=== PATIENT | female | born 1990 | race Caucasian/White ===

== ENCOUNTER → 2020-08-11 10:58 | Outpatient (CLI) | payer OTHER, SELFPAY ==
[2020-08-11 12:46] LABS: Appearance Urine UA CLEAR; Bilirubin Urine UA NEGATIVE (NEGATIVE); Color Urine UA YELLOW; Glucose Urine UA NEGATIVE (Negative); Ketones Urine UA NEGATIVE (NEGATIVE); Leukocyte Esterase Urine UA NEGATIVE (NEGATIVE); Nitrite Urine UA NEGATIVE (Negative); Occult Blood Urine UA NEGATIVE (Negative); Protein Urine UA NEGATIVE (Negative); Urobilinogen Urine UA 0.2 E.U./dL (0.2)
[2020-08-11 12:47] LABS: Add Manual Diff / Slide Review NO; Basophils Absolute Auto 0 /uL (0-100); Basophils Percent Auto 0.3 % (0-2); Eosinophils Absolute Auto 100 /uL (0-450); Eosinophils Percent Auto 1.7 % (2-4); Hematocrit 39.4 % (36-46); Hemoglobin 13.2 g/dL (12.0-16.0); Lymphocytes Absolute Auto 1800 /uL (1100-4500); Lymphocytes Percent Auto 24.9 % (25-40); Mean Corpuscular HGB Conc 33.4 % (30-36); Mean Corpuscular Hemoglobin 28.7 PG (26-34); Mean Corpuscular Volume 86.1 fL (80-100); Monocytes Absolute Auto 500 /uL (0-900); Monocytes Percent Auto 6.4 % (3-14); Neutrophils Absolute Auto 4800 /uL (1500-7000); Neutrophils Percent Auto 66.7 % (50-75); Platelet Count 252 X10^3/uL (150-400); Red Blood Cell Count 4.58 X10^6/uL (4.0-5.2); Red Cell Distribution Width 13.9 % (11.6-14.8); White Blood Cell Count 7.2 X10^3/uL (4.5-11.0)
[2020-08-11 12:49] LABS: pH Urine UA 6.5 (4.5-8.0)
[2020-08-11 13:34] LABS: Hepatitis B Surface Antigen NEGATIVE s/c (NEGATIVE); Rubella Antibody IgG 18.5 IU/mL (>15)
[2020-08-11 13:51] LABS: HIV 1 & 2 Ab/Ag 4th Gen Combo NEGATIVE (NEGATIVE); Hep C Virus Ab w/Reflex Quant NEGATIVE s/c (NEGATIVE)
[2020-08-12 05:45] LABS: RPR Screen Non Reactive (Non Reactive)
[2020-08-12 08:09] LABS: Varicella IgG Antibody 1626 index (Immune >165)
== END ==
PROVIDERS: PCP Obstetrics & Gynecology; Referring Provider Obstetrics & Gynecology; Visit Provider Obstetrics & Gynecology
DX: Z34.81 Encounter for supervision of other normal pregnancy, first trimester (principal)
CPT/HCPCS: 36415; 80055; 81003; 86787; 86803; 86850; 86900; 86901; 87086; 87389

== ENCOUNTER → 2020-09-02 09:12 | Outpatient (CLI) | payer OTHER, SELFPAY | PROVIDERS: PCP Obstetrics & Gynecology; Visit Provider Obstetrics & Gynecology | DX: Z34.81 Encounter for supervision of other normal pregnancy, first trimester (principal); Z3A.13 13 weeks gestation of pregnancy | CPT/HCPCS: 87491; 87591 ==

== ENCOUNTER → 2020-09-30 10:18 | Outpatient (CLI) | payer OTHER, SELFPAY ==
[2020-10-05 14:08] LABS: Calc Gestational Age EDD (.); Estriol, Free 1.35 ng/mL (.); Inhibin A, Dimeric 199.99 pg/mL (.); Maternal Ethnicity Caucasian (.); Maternal Weight 186 lbs (.); Number of Fetuses No (.); OSBR Risk 1 IN 6499 (.); Results Report (.); Test Results *Screen Negative* (.); hCG, MoM 1.94 (.); hCG, Serum 50145 mIU/mL (.)
== END ==
PROVIDERS: Referring Provider Obstetrics & Gynecology; Visit Provider Obstetrics & Gynecology
DX: Z34.82 Encounter for supervision of other normal pregnancy, second trimester (principal); Z3A.17 17 weeks gestation of pregnancy
CPT/HCPCS: 36415; 82105; 82677; 84702; 86336

== ENCOUNTER → 2020-11-02 13:28 | Outpatient (CLI) | payer OTHER, SELFPAY ==
--- NOTE | 2020-11-02 13:29 | DI.US.S_ITS ---
PROCEDURE: US OB >= 14 WEEKS FETUS INDICATIONS: ANATOMY OUTSIDE/PRIOR DATING DATA: Last menstrual period (LMP): 05/23/2020. LMP-based estimated date of delivery (HERSON): 02/27/2021 . First dating scan (date and location): 08/05/2020. Estimated date of delivery (HERSON) from first dating scan: 03/06/2021. TECHNIQUE: Real-time scanning was performed of the fetus, with image documentation and biometric measurements. Endovaginal scanning: No COMPARISON: [facility], , OB <= 14 WEEKS FETUS, 09/02/2020, 9:32. FINDINGS: General: A single living intrauterine gestation is present. Presentation: Variable. Placenta: Placental position is anterior , without previa. Amniotic fluid index: 14.4 cm, normal range is 5-24 cm. heart rate: 137 beats per minute. Maternal cervical canal: 5.7 cm cm long. Normal lower limit is 2.5 cm. biometrics: Biparietal diameter: 21 weeks 6 Head circumference: 21 weeks 5 days Abdominal circumference: 21 weeks 4 days Femur length: 22 weeks 3 days Estimated gestational age from initial scan: 22 weeks 2 days Composite gestational age from present scan: 21 weeks 6 days Estimated weight and percentile: 461 g; 26 percentile Measurement variability for biometric dating: +/- 7 days from 14 weeks to 15 weeks 6 days gestation, +/- 10 days from 16 weeks to 21 weeks 6 days gestation, +/- 2 weeks from 22 weeks to 27 weeks 6 days gestation, +/- 3 weeks for 28 weeks gestation or later. weight reference: 4500 g or EFW >90/95% is considered macrosomia or large for gestational age. EFW <10% is small for gestational age. EFW 5% or less is considered intra-uterine growth restriction. Anatomic survey: Neuro: Ventricles are non-dilated at less than 10 mm. Cisterna magna is normal at 3-11 mm. Cerebellum is normal in size and morphology. Nuchal skin fold: Normal at less than 6 mm between 14-21 weeks gestational age. Face: Nose and lips, facial profile are normal. Spine: No evidence for spina bifida. Heart: 4-chambered heart is present, with normal ventricular outflow tracts. Diaphragm: Diaphragm is intact. Stomach: Left-sided stomach is present. Kidneys: No hydronephrosis. Normal is less than 5 mm in 2nd trimester, less than 7 mm in 3rd trimester. Cord: 3-vessel cord has orthotopic insertion. Bladder: Normal in size. Extremities: All 4 extremities identified. IMPRESSION: 1. Single living intrauterine demonstrating interval growth with estimated weight at the 26th percentile. 2. anatomic survey within normal limits. Dictated by: [place] [facility] Interpreted: Jhony Handy MD on 11/02/2020 at 15:16 Approved by: Jhony Handy M.D. on 11/02/2020 at 15:49
== END ==
PROVIDERS: Referring Provider Obstetrics & Gynecology; Visit Provider Obstetrics & Gynecology
DX: Z34.82 Encounter for supervision of other normal pregnancy, second trimester (principal); Z3A.21 21 weeks gestation of pregnancy
CPT/HCPCS: 76811

== ENCOUNTER → 2020-11-27 10:42 | Outpatient (CLI) | payer OTHER, SELFPAY ==
[2020-11-27 13:07] LABS: Hematocrit 31.4 % (36-46); Hemoglobin 10.4 g/dL (12.0-16.0)
[2020-11-27 13:46] LABS: GTT (PREG) 1 Hour PP 50gm Dose 172 mg/dL (76-139)
== END ==
PROVIDERS: Referring Provider Obstetrics & Gynecology; Visit Provider Obstetrics & Gynecology
DX: Z34.82 Encounter for supervision of other normal pregnancy, second trimester (principal); Z3A.26 26 weeks gestation of pregnancy
CPT/HCPCS: 36415; 82950; 85014; 85018

== ENCOUNTER → 2020-12-07 08:18 | Outpatient (CLI) | payer OTHER, SELFPAY ==
[2020-12-07 09:57] LABS: Glucose Fasting 95 mg/dL (70-100)
[2020-12-07 10:50] LABS: Glucose 1 Hour 190 mg/dL (70-170)
[2020-12-07 11:46] LABS: Glucose Tol Interpretation INTERPRETATION
[2020-12-07 11:50] LABS: Glucose 2 Hour 165 mg/dL (70-140)
[2020-12-07 12:59] LABS: Glucose 3 Hour 123 mg/dL (70-115)
== END ==
PROVIDERS: PCP Obstetrics & Gynecology; Referring Provider Obstetrics & Gynecology; Visit Provider Obstetrics & Gynecology
DX: Z34.90 Encounter for supervision of normal pregnancy, unspecified, unspecified trimester (principal); R73.09 Other abnormal glucose
CPT/HCPCS: 36415; 82951; 82952

== ENCOUNTER 2021-01-13 16:15 | Outpatient (CLI) | payer OTHER, SELFPAY ==
--- NOTE | 2021-01-15 10:37 | PM.OBTRLD ---
Visit Information Visit Information Date of evaluation: 01/13/21 Primary OB Provider: Tg Greer Reason for Evaluation: Yes non-stress test non-stress test reason: diabetes (insulin-dependent) [facility] Medical History (Updated 12/28/20 @ 16:08 by Tg Greer MD) Ankle fracture, left Ankle fracture, right Fractured nose Ovarian cyst (~2007) PCOS (polycystic ovarian syndrome) (~2011) (spontaneous vaginal delivery) Surgical History (Updated 09/02/20 @ 09:32 by Tg Greer MD) H/O removal of cyst H/O wisdom tooth extraction History of tonsillectomy and adenoidectomy Status post incision and drainage (~2011) Family History (Updated 08/03/20 @ 14:39 by Ximena Damon RN) Mother No problems noted. Father No problems noted. Grandmother Alcoholic Grandfather No problems noted. 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
== END 2021-01-13 17:05 | disposition home or self-care (01) ==
LOC: LABOR 16:37 → OB 01-14 07:52
PROVIDERS: PCP Obstetrics & Gynecology; Referring Provider Obstetrics & Gynecology; Visit Provider Obstetrics & Gynecology
DX: O24.414 Gestational diabetes mellitus in pregnancy, insulin controlled (principal); Z3A.32 32 weeks gestation of pregnancy
CPT/HCPCS: 59025; G0378; G0379

== ENCOUNTER 2021-01-20 10:06 | Outpatient (CLI) | payer OTHER, SELFPAY | END 2021-01-20 10:44 | disposition home or self-care (01) | LOC: LABOR 10:10 → OB 01-21 06:49 | PROVIDERS: PCP Obstetrics & Gynecology; Referring Provider Obstetrics & Gynecology; Visit Provider Obstetrics & Gynecology | DX: O24.414 Gestational diabetes mellitus in pregnancy, insulin controlled (principal); Z3A.33 33 weeks gestation of pregnancy | CPT/HCPCS: 59025; G0378; G0379 ==

== ENCOUNTER 2021-01-27 10:48 | Outpatient (CLI) | payer OTHER, SELFPAY | END 2021-01-27 11:20 | disposition home or self-care (01) | LOC: OB 01-28 07:36 | PROVIDERS: PCP Obstetrics & Gynecology; Referring Provider Obstetrics & Gynecology; Visit Provider Obstetrics & Gynecology | DX: O24.414 Gestational diabetes mellitus in pregnancy, insulin controlled (principal); Z3A.34 34 weeks gestation of pregnancy | CPT/HCPCS: 59025; G0378; G0379 ==

== ENCOUNTER 2021-02-03 10:23 | Outpatient (CLI) | payer OTHER, SELFPAY | END 2021-02-03 11:35 | disposition home or self-care (01) | LOC: OB 02-04 07:56 | PROVIDERS: PCP Obstetrics & Gynecology; Referring Provider Obstetrics & Gynecology; Visit Provider Obstetrics & Gynecology | DX: O24.414 Gestational diabetes mellitus in pregnancy, insulin controlled (principal); Z3A.35 35 weeks gestation of pregnancy | CPT/HCPCS: 59025; G0378; G0379 ==

== ENCOUNTER 2021-02-10 10:42 | Outpatient (CLI) | payer OTHER, SELFPAY | END 2021-02-10 10:50 | disposition home or self-care (01) | LOC: OB 02-15 09:55 | PROVIDERS: Referring Provider Obstetrics & Gynecology; Visit Provider Obstetrics & Gynecology | DX: O24.414 Gestational diabetes mellitus in pregnancy, insulin controlled (principal); Z3A.36 36 weeks gestation of pregnancy | CPT/HCPCS: 59025; 87653; G0378; G0379 ==

== ENCOUNTER → 2021-02-10 12:09 | Outpatient (CLI) | payer OTHER, SELFPAY ==
[2021-02-11 20:30] LABS: Strep Grp B PCR NEG for Grp B Strep
== END ==
PROVIDERS: Visit Provider Obstetrics & Gynecology
DX: Z34.83 Encounter for supervision of other normal pregnancy, third trimester (principal); Z3A.36 36 weeks gestation of pregnancy
CPT/HCPCS: 87653

== ENCOUNTER 2021-02-17 13:36 | Outpatient (CLI) | payer OTHER, SELFPAY | END 2021-02-17 14:19 | disposition home or self-care (01) | LOC: LABOR 14:07 → OB 16:23 | PROVIDERS: Referring Provider Obstetrics & Gynecology; Visit Provider Obstetrics & Gynecology | DX: O24.414 Gestational diabetes mellitus in pregnancy, insulin controlled (principal); Z3A.37 37 weeks gestation of pregnancy | CPT/HCPCS: 59025; G0378; G0379 ==

== ENCOUNTER 2021-02-20 21:15 | Observation (INO) | payer OTHER, SELFPAY ==
--- NOTE | 2021-02-21 10:35 | P.TNLD_ITS ---
Visit Information Visit Information Date of evaluation: 02/20/21 Primary OB Provider: Tg Greer On-call OB Provider: Galilea Briones Reason for Evaluation: Yes rule out labor Vital Signs Vital Signs: Blood pressure 136/75, pulse of 90, temperature 36.7? [facility] Medical History (Updated 02/21/21 @ 10:37 by Galilea Briones MD) Ankle fracture, left Ankle fracture, right Fractured nose Ovarian cyst (~2007) PCOS (polycystic ovarian syndrome) (~2011) (spontaneous vaginal delivery) Surgical History (Updated 09/02/20 @ 09:32 by Tg Greer MD) H/O removal of cyst H/O wisdom tooth extraction History of tonsillectomy and adenoidectomy Status post incision and drainage (~2011) Family History (Updated 08/03/20 @ 14:39 by Ximena Damon RN) Mother No problems noted. Father No problems noted. Grandmother Alcoholic Grandfather No problems noted. 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 No leakage of fluid. Good movement. No headaches, scotomata, epigastric pain. ROS: Yes All systems reviewed with the patient and are negative except as oth erwise documented Evaluation Evaluation Baseline heart rate: 130 Variability: Moderate (11-25) monitor accelerations: Present Monitor Decelerations: Absent Contraction Frequency (minutes): 3 Uterine Contraction Intensity: Moderate Category of Tracing: Reactive Status: Category l Cervical dilation (cm): 1 Cervical effacement (%): 0 station: -3 Diagnosis, Plan/Disposition Final Diagnosis (1) False labor: Status: Acute (2) 38 weeks gestation of : Status: Acute Plan/Disposition Plan: Patient arrived on Labor and delivery for possibility of labor. She had no change in cervix after 1 hour and requested discharge home. Precautions reviewed with the patient. OB Disposition: home
== END 2021-02-20 23:40 | disposition home or self-care (01) ==
PROVIDERS: Admitting Provider Specialist; Referring Provider Specialist; Visit Provider Specialist
DX: O24.414 Gestational diabetes mellitus in pregnancy, insulin controlled (principal); O47.1 False labor at or after 37 completed weeks of gestation; Z3A.38 38 weeks gestation of pregnancy
CPT/HCPCS: 59025; 59050; G0378; G0379

== ENCOUNTER 2021-02-24 07:05 | Inpatient (IN) | payer OTHER, SELFPAY ==
--- NOTE | 2021-02-24 07:49 | PM.OBHP.1 ---
OB HPI Date/Time Date of admission: 02/24/21 Date Patient Seen: 02/24/21 Time Patient Seen: 07:49 History of Present Condition Chief complaint: observation : 3 Para: 2 Estimated Date of Delivery: 03/06/21 Estimated Gestational Age (weeks): 39 Narrative: Suzette Clemente is a 30 year old female 3 para 2 at estimated gestational age of 39 weeks here for induction of labor due to gestational diabetes requiring insulin. Indications Indication for induction OB: medical complication (Gestational diabetes on insulin) History of Present care: good care, initiated at week # (9), number of visits (10) and pounds weight gain (42) Dating criteria: LMP confirmed by 1st trimester US Ultrasounds: normal 1st trimester US and normal mid trimester US Obstetrical complications: gestational diabetes (Requiring insulin) Medical complications: none Preadmission Labs Blood type: A (+) positive -: Antibody screen: negative, GBS status: negative, HBsAG: negative, HIV: negative and RPR/VDLR: negative -: Chlamydia screen: not detected and Gonorrhea screen: not detected -: Rubella: immune HCT: 31.4 HCAB: reactive PAP: Normal Quad screen: Normal 1 hr GTT: 172 3 hr GTT: 1 hr (190), 2 hr (165) and 3 hr (123) Fasting blood glucose: 95 Prior (ies) History: Two spontaneous vaginal deliveries Evaluation Evaluation Baseline heart rate: 135 Variability: Moderate (11-25) monitor accelerations: Present Monitor Decelerations: Absent Status: Category l Cervical dilation (cm): 2 Cervical effacement (%): 80 station: -1 [facility] Medical History (Updated 02/22/21 @ 06:27 by Tg Greer MD) Ankle fracture, left Ankle fracture, right Fractured nose Ovarian cyst (~2007) PCOS (polycystic ovarian syndrome) (~2011) (spontaneous vaginal delivery) Surgical History (Updated 09/02/20 @ 09:32 by Tg Greer MD) H/O removal of cyst H/O wisdom tooth extraction History of tonsillectomy and adenoidectomy Status post incision and drainage (~2011) Family History (Updated 08/03/20 @ 14:39 by Ximena Damon RN) Mother No problems noted. Father No problems noted. Grandmother Alcoholic Grandfather No problems noted. 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 Smoking Status: Never smoker second hand exposure: No alcohol intake: former (pre- : very occasional) substance use type: does not use Meds Home Medications and Allergies Home Medications Medication Instructions Recorded Confirmed Type prenat.vits,raffy,kky-rwoz-drmhg 1 tab PO DAILY 08/03/20 02/20/21 History blood-glucose meter #1 ea 12/10/20 02/20/21 Rx lancets #100 ea 12/10/20 02/20/21 Rx blood sugar diagnostic #100 ea 12/28/20 02/20/21 Rx pen needle, diabetic 29 gauge x #30 ea 12/31/20 02/20/21 Rx 1/2 insulin NPH isoph U-100 human 100 26 unit SUBCUT QPM #15 ml 02/01/21 02/20/21 Rx unit/mL (3 mL) subcutaneous pen Allergies Allergy/AdvReac Type Severity Reaction Status Date / Time No Known Drug Allergies Allergy Verified 02/17/21 12:52 Exam Vital Signs (past 8 hours): Generally: Patient is sitting up in bed, no acute distress Lungs: Clear to auscultation bilaterally Cardiovascular: Regular rate and rhythm Fundal height: 39 cm Estimated weight: 7-1/2 lb Extremities: Trace edema, 1+ DTRs Assessment and Plan Assessment and Plan Assessment and Plan narrative: Assessment: 30-year-old 3 para 2 at estimated gestational age of 39 weeks for induction of labor due to gestational diabetes requiring insulin Plan: Check blood sugars every 3 hours Pitocin per protocol 2 Epidural as needed Expected management to spontaneous vaginal delivery Time Spent with Patient Total time spent with greater than 50% in coordination of care (as documented) at patient's floor/unit and/or counseling patient:: 15-24 minutes
[2021-02-24] MEDS: LACTATED RINGERS 1,000 ML 100 ML IV ×2 (08:16→15:07)
[2021-02-24] MEDS: OXYTOCIN PREMIX 30 UNIT/500 ML PLAST..BAG IV (08:17)
[2021-02-24 08:34] LABS: Add Manual Diff / Slide Review NO; Basophils Absolute Auto 0 /uL (0-100); Basophils Percent Auto 0.3 % (0-2); Eosinophils Absolute Auto 100 /uL (0-450); Eosinophils Percent Auto 0.8 % (2-4); Hematocrit 33.9 % (36-46); Lymphocytes Absolute Auto 1700 /uL (1100-4500); Lymphocytes Percent Auto 18.5 % (25-40); Mean Corpuscular HGB Conc 32.4 % (30-36); Mean Corpuscular Hemoglobin 25.7 PG (26-34); Mean Corpuscular Volume 79.3 fL (80-100); Monocytes Absolute Auto 600 /uL (0-900); Neutrophils Absolute Auto 6800 /uL (1500-7000); Neutrophils Percent Auto 74.4 % (50-75); Platelet Count 216 X10^3/uL (150-400); Red Blood Cell Count 4.28 X10^6/uL (4.0-5.2); Red Cell Distribution Width 15.8 % (11.6-14.8); White Blood Cell Count 9.2 X10^3/uL (4.5-11.0)
[2021-02-24 08:54] VITALS: BP 123/82
[2021-02-24 09:22] LABS: COVID19 - ADMIT (NP swab/PCR) Negative (Negative)
--- NOTE | 2021-02-24 17:58 | PM.OBPNLAB ---
Date/Time Date Patient Seen: 02/24/21 Time Patient Seen: 14:40 Pain Control Pain control: epidural Pelvic Exam Dilation (cm): 4 Effacement (%): 85 station: -1 Amniotic membrane status: Intact Contractions Monitor mode: External Pitocin rate (mU/min): 12 Contraction frequency (min): 4 Contraction pattern: Regular Contraction intensity: Moderate Status status: Category l Heart Rate Baseline: 130 Monitor Accelerations: Present Monitor Decelerations: Absent Monitor Variability: Moderate Assessment and Plan Assessment: induction ongoing Comments: AROM with copious clear amniotic fluid Expectant management to
--- NOTE | 2021-02-24 18:00 | PM.OBPNLAB ---
Date/Time Date Patient Seen: 02/24/21 Time Patient Seen: 18:00 Pain Control Pain control: epidural Pelvic Exam Dilation (cm): 6 Effacement (%): 90 station: 0 Amniotic membrane status: Ruptured Contractions Monitor mode: External Pitocin rate (mU/min): 25 Contraction frequency (min): 4 Contraction pattern: Regular Contraction intensity: Moderate Status status: Category l Heart Rate Baseline: 130 Monitor Accelerations: Present Monitor Decelerations: Absent Monitor Variability: Moderate Assessment and Plan Assessment: active labor and induction ongoing Plan: continuous present management Comments: Side to side with peanut ball
[2021-02-24] MEDS: FENT 2MCG/ML BUPIV 0.125% EPI 200 MCG/100 ML PLAST..BAG 13.5 MCG EPIDURAL (18:14)
--- NOTE | 2021-02-24 19:35 | P.PCNOB_ITS ---
Events: Gestational Diabetes (on insulin) and Labor Induction Labor & Delivery Delivery date: 02/24/21 Cervical ripening method: none Induction method: per pitocin protocol Delivery augmentation: rupture of membranes Delivery monitor: external FHT and external uterine Route of delivery: Episiotomy description: None L&D Laceration Description: Perineal - 2nd Degree and Superficial (bilateral labia) Delivery repair: vicryl and chromic Estimated blood loss (mL): 150 Anesthesia Type: Epidural Complications: None Narrative: Patient complete and pushed for 4 minutes. At 6:55 p.m., a live female infant delivered spontaneously over an intact perineum in the MIGUEL presentation. A loose nuchal cord x1 was reduced on the perineum. The remainder of the body delivered without difficulty and was placed on mom's abdomen. When the cord stopped pulsing, the cord was double clamped and cut. Cord bloods were obtained. The placenta delivered intact with a three-vessel cord at 7:08 p.m.. Pitocin was given in the IV fluids. Fundus was massaged to firm. A second-degree perineal laceration was repaired with 2 0 Vicryl and 2 0 chromic in the usual fashion. Bilateral superficial labial lacerations were repaired with 4-0 chromic. Hemostasis was achieved. Apgars 9 at 1 minute and 9 at 5 minutes. Epidural analgesia. . Mom and infant stable to recovery [place] Baby 1: Infant gender: Female Presentation: vertex Position: Left Occiput Anterior Placenta delivery description: Spontaneous Cord Vessel Description: 3 Vessels, Nuchal Cord and Loose score (1 min): 9 score (5 min): 9 Plan for aftercare: Routine care
[2021-02-24] MEDS: IBUPROFEN 600 MG TABLET PO (20:06)
[2021-02-25] MEDS: IBUPROFEN 600 MG TABLET PO ×2 (02:15→08:40)
[2021-02-25] MEDS: OXYCODONE IR 5 MG TABLET PO (05:40)
[2021-02-25] MEDS: ACETAMINOPHEN 325 MG TABLET 650 MG PO (05:41)
[2021-02-25 06:07] LABS: Hematocrit 29.8 % (36-46); Hemoglobin 9.9 g/dL (12.0-16.0)
[2021-02-25] MEDS: DOCUSATE 100 MG CAPSULE PO (08:40)
[2021-02-25] MEDS: PRENATAL VIT,CALC/IRON/FOLIC 1 TABLET 1 TAB PO (08:40)
[2021-02-25 12:38] VITALS: BP 130/74; PULSE 87; RESP 16; TEMP 36.6
== END 2021-02-25 13:32 | disposition home or self-care (01) | DRG 807 ==
PROVIDERS: Admitting Provider Obstetrics & Gynecology; Referring Provider Obstetrics & Gynecology; Visit Provider Obstetrics & Gynecology
DX: O24.414 Gestational diabetes mellitus in pregnancy, insulin controlled (principal); O69.81X0 Labor and delivery complicated by cord around neck, without compression, not applicable or unspecified; Z3A.39 39 weeks gestation of pregnancy; Z37.0 Single live birth; O70.1 Second degree perineal laceration during delivery
CPT/HCPCS: 01967; 36415; 59050; 59400; 85014; 85018; 85025; 86850; 86900; 86901; 87635; C9803; G0379; J2590

== ENCOUNTER → 2021-05-07 07:38 | Outpatient (CLI) | payer OTHER, SELFPAY ==
[2021-05-07 09:08] LABS: Glucose Fasting 93 mg/dL (70-100)
[2021-05-07 09:53] LABS: Glucose 1 Hour 123 mg/dL (70-170)
[2021-05-07 09:56] LABS: Glucose Tol Interpretation INTERPRETATION
[2021-05-07 11:16] LABS: Glucose 2 Hour 101 mg/dL (70-140)
== END ==
PROVIDERS: Referring Provider Obstetrics & Gynecology; Visit Provider Obstetrics & Gynecology
DX: O24.414 Gestational diabetes mellitus in pregnancy, insulin controlled (principal)
CPT/HCPCS: 36415; 82951; 82952

== ENCOUNTER → 2024-09-21 08:24 | Outpatient (CLI) | payer OTHER, SELFPAY ==
[2024-09-21 09:56] LABS: Glucose 99 mg/dL (70-100)
[2024-09-22 07:36] LABS: Insulin Level Total 6.6 uIU/mL (2.6-24.9)
== END ==
PROVIDERS: Referring Provider Obstetrics & Gynecology; Visit Provider Obstetrics & Gynecology
DX: E28.2 Polycystic ovarian syndrome (principal)
CPT/HCPCS: 36415; 82947; 83525